=== PATIENT | female | born 1975 | race American Indian/Alaskan Native ===

== ENCOUNTER 2018-07-01 12:38 | Emergency (ER) | payer MEDICARE ==
[2018-07-01] MEDS ORDERED: DILAUDID IM ONE (13:07)
--- NOTE | 2018-07-01 13:08 | Emergency Department Report ---
ED General Adult HPI - General Chief complaint: Back Pain/Injury Stated complaint: HIP PAIN Time Seen by Provider: 07/01/18 12:59 Source: patient, RN notes reviewed, old records reviewed Mode of arrival: Stretcher Limitations: No Limitations - History of Present Illness Initial comments: This is a 43-year-old female. Patient reports a past medical history of hysterectomy, and psychiatric disease. Patient also has a pain specialist; Dr. Purcell Patient presents to the ER with a complaint of nontraumatic bilateral thigh pain which has been present for one day. The pain is sharp and burning, and it radiates to the proximal mid thigh. it otherwise does not have exacerbating or relieving factors. She denies headache, neck pain, chest pain, abdominal pain, shortness of breath. She reports anxiety, but denies irritative, obstructive urinary symptoms, and denies bladder or bowel retention, incontinence. As far as the patient knows, her pain otherwise does not have relieving factors. -: Gradual Location: left, right, lower extremity Radiation: extremity Quality: burning Consistency: other Improves with: other Worsens with: other Associated Symptoms: other (patient complains of anxiety). denies: confusion, chest pain, cough, diaphoresis, fever/chills, headaches, loss of appetite, malaise, nausea/vomiting, rash, seizure, shortness of breath, syncope, weakness - Related Data Home Medications Medication Instructions Recorded Confirmed Last Taken ALPRAZolam [Xanax TAB] 1 mg PO TID PRN 03/05/15 06/10/16 1 Day Ago ~03/04/15 Morphine [Morphine TAB] 60 mg PO BID 03/05/15 06/10/16 1 Day Ago ~03/04/15 Oxycodone HCl [Roxicodone] 30 mg PO TID 03/05/15 06/10/16 1 Day Ago ~03/04/15 buPROPion [Wellbutrin] 300 mg PO DAILY 03/05/15 06/10/16 Unknown amLODIPine [Norvasc] 10 mg PO DAILY 06/10/16 06/10/16 Unknown Previous Rx's Medication Instructions Recorded Last Taken Type Acetaminophen [Tylenol Arthritis] 650 mg PO Q6HR PRN #30 tablet.er 07/01/18 Unknown Rx Lidocaine [Lidoderm] 1 each TP QDAY #5 adh..patch 07/01/18 Unknown Rx Allergies Allergy/AdvReac Type Severity Reaction Status Date / Time NSAIDS (Non-Steroidal Allergy Swelling Verified 03/05/15 07:02 Anti-Inflamma ED Review of Systems ROS: Stated complaint: HIP PAIN Other details as noted in HPI Constitutional: denies: fever Eyes: denies: eye discharge ENT: denies: epistaxis Respiratory: denies: cough Cardiovascular: denies: chest pain Gastrointestinal: denies: abdominal pain Genitourinary: denies: dysuria Musculoskeletal: arthralgia, myalgia Psychiatric: anxiety ED Past Medical Hx - Past Medical History Previous Medical History?: Yes Hx Hypertension: Yes Hx Psychiatric Treatment: Yes (PTSD) Additional medical history: anxiety - Surgical History Past Surgical History?: Yes Additional Surgical History: URETER SURGERY WITH MESH. Hysterectomy - Social History Smoking Status: Never Smoker Substance Use Type: None - Medications Home Medications: Home Medications Medication Instructions Recorded Confirmed Last Taken Type ALPRAZolam [Xanax TAB] 1 mg PO TID PRN 03/05/15 06/10/16 1 Day Ago History ~03/04/15 Morphine [Morphine TAB] 60 mg PO BID 03/05/15 06/10/16 1 Day Ago History ~03/04/15 Oxycodone HCl [Roxicodone] 30 mg PO TID 03/05/15 06/10/16 1 Day Ago History ~03/04/15 buPROPion [Wellbutrin] 300 mg PO DAILY 03/05/15 06/10/16 Unknown History amLODIPine [Norvasc] 10 mg PO DAILY 06/10/16 06/10/16 Unknown History Acetaminophen [Tylenol Arthritis] 650 mg PO Q6HR PRN #30 tablet.er 07/01/18 Unknown Rx Lidocaine [Lidoderm] 1 each TP QDAY #5 adh..patch 07/01/18 Unknown Rx ED Physical Exam - General Limitations: No Limitations General appearance: alert, anxious, in distress - Head Head exam: Present: atraumatic, normocephalic - Eye Eye exam: Present: normal appearance, EOMI. Absent: nystagmus - ENT ENT exam: Present: normal exam, normal orophraynx, mucous membranes moist, normal external ear exam - Neck Neck exam: Present: normal inspection, full ROM. Absent: tenderness, meningismus - Respiratory Respiratory exam: Present: normal lung sounds bilaterally. Absent: respiratory distress - Cardiovascular Cardiovascular Exam: Present: normal rhythm, tachycardia, normal heart sounds. Absent: systolic murmur, diastolic murmur, rubs, gallop - GI/Abdominal GI/Abdominal exam: Present: soft, normal bowel sounds. Absent: distended, tenderness, guarding, rebound, rigid, pulsatile mass - Extremities Exam Extremities exam: Present: normal inspection (no redness, pus or streaking noted in the bilateral inguinal regions. Inguinal regions nontender. Chaperoned by nurse Sophia Rodgers), full ROM, normal capillary refill, other ( 2+ pulses noted in the bilateral upper, lower extremities. Compartments soft. No long bony tenderness. The pelvis is stable.). Absent: tenderness, pedal edema, joint swelling, calf tenderness - Back Exam Back exam: Present: normal inspection, full ROM. Absent: tenderness, CVA tenderness (R), paraspinal tenderness, vertebral tenderness - Neurological Exam Neurological exam: Present: alert, oriented X3, CN II-XII intact, normal gait, other (2+ pulses noted in the bilateral upper, lower extremities. Compartments soft. No long bony tenderness. The pelvis is stable.). Absent: motor sensory deficit - Psychiatric Psychiatric exam: Present: anxious - Skin Skin exam: Present: warm, dry, intact, normal color. Absent: rash ED Course Vital Signs 07/01/18 07/01/18 07/01/18 12:51 14:01 14:56 Temperature 98.2 F Pulse Rate 111 H 76 91 H Respiratory 18 18 18 Rate Blood Pressure 114/70 Blood Pressure 118/81 132/81 [Right] O2 Sat by Pulse 98 97 98 Oximetry ED Medical Decision Making - Lab Data Result diagrams: 07/01/18 14:11 07/01/18 14:11 Vital Signs 07/01/18 07/01/18 07/01/18 12:51 14:01 14:56 Temperature 98.2 F Pulse Rate 111 H 76 91 H Respiratory 18 18 18 Rate Blood Pressure 114/70 Blood Pressure 118/81 132/81 [Right] O2 Sat by Pulse 98 97 98 Oximetry Lab Results 07/01/18 07/01/18 07/01/18 Range/Units 14:11 14:11 14:11 WBC 6.5 (4.5-11.0) K/mm3 RBC 4.47 (3.65-5.03) M/mm3 Hgb 13.6 (10.1-14.3) gm/dl Hct 40.5 (30.3-42.9) % MCV 91 (79-97) fl MCH 31 (28-32) pg MCHC 34 (30-34) % RDW 13.1 L (13.2-15.2) % Plt Count 215 (140-440) K/mm3 Sodium 138 (137-145) mmol/L Potassium 4.4 (3.6-5.0) mmol/L Chloride 99.9 (98-107) mmol/L Carbon Dioxide 30 (22-30) mmol/L Anion Gap 13 mmol/L BUN 6 L (7-17) mg/dL Creatinine 0.6 L (0.7-1.2) mg/dL Estimated GFR > 60 ml/min BUN/Creatinine Ratio 10 % Glucose 116 H (65-100) mg/dL Calcium 9.6 (8.4-10.2) mg/dL Magnesium 2.00 (1.7-2.3) mg/dL Total Creatine Kinase 434 H (30-135) units/L Salicylates < 0.3 L (2.8-20.0) mg/dL Acetaminophen (10.0-30.0) ug/mL 07/01/18 Range/Units 14:11 WBC (4.5-11.0) K/mm3 RBC (3.65-5.03) M/mm3 Hgb (10.1-14.3) gm/dl Hct (30.3-42.9) % MCV (79-97) fl MCH (28-32) pg MCHC (30-34) % RDW (13.2-15.2) % Plt Count (140-440) K/mm3 Sodium (137-145) mmol/L Potassium (3.6-5.0) mmol/L Chloride (98-107) mmol/L Carbon Dioxide (22-30) mmol/L Anion Gap mmol/L BUN (7-17) mg/dL Creatinine (0.7-1.2) mg/dL Estimated GFR ml/min BUN/Creatinine Ratio % Glucose (65-100) mg/dL Calcium (8.4-10.2) mg/dL Magnesium (1.7-2.3) mg/dL Total Creatine Kinase (30-135) units/L Salicylates (2.8-20.0) mg/dL Acetaminophen < 5.0 L (10.0-30.0) ug/mL - Radiology Data Radiology results: report reviewed, image reviewed X-ray of the pelvis is negative for acute disease - Medical Decision Making Differential diagnosis, including but not limited to: Anxiety, neuropathic pain , musculoskeletal pain, fibromyalgia, myositis Assessment and plan: 43-year-old female with nonspecific proximal thigh pain, initially quite tachycardic, most likely secondary to underlying anxiety. Muscular compartment soft, with no redness, pus or streaking, laboratory studies essentially unremarkable, CK of 430 does not meet definition criteria of rhabdomyolysis, does not require IV fluids and it will decrease on its own with oral hydration. The patient's symptoms were markedly improved with intramuscular hydromorphone as she is allergic to NSAIDs, and on multiple repeat evaluations she is noted to be playing on the cellular phone and in no acute distress. She further reports that she has an outpatient pain specialist. There does not appear to be an emergent medical condition at this time, patient medically suitable for discharge with her outpatient primary care doctor, pain specialist. Critical care attestation.: If time is entered above; I have spent that time in minutes in the direct care of this critically ill patient, excluding procedure time. ED Disposition Clinical Impression: Leg pain Disposition: DC-01 TO HOME OR SELFCARE Is pt being admited?: No Does the pt Need Aspirin: No Condition: Stable Instructions: Arthralgia (ED) Additional Instructions: Continue current outpatient pain medications. Take the prescribed pain medications as directed. If taking acetaminophen, do not combine with other acetaminophen-containing compounds, such as Tylenol, Ultram, Percocet. Use Lidoderm patches as directed, rest, and avoid heavy lifting and avoid strenuous physical activities. Follow up with a primary care doctor or pain specialist within the next 10 days. Return to the ER right away with new pain, worsened pain, migration of pain, projectile vomiting, change in mental status, confusion, inability to tolerate liquid feeds. Referrals: OLESYA CHOWDARY MD [Staff Physician] - 3-5 Days
--- NOTE | 2018-07-01 14:08 | XRay Report ---
FINAL REPORT EXAM: XR PELVIS 1-2V HISTORY: hip pain TECHNIQUE: AP view of pelvis. PRIORS: None. FINDINGS: No apparent fracture or dislocation. Joint spaces maintained. Mild marginal spurring in the left superolateral acetabulum. Soft tissues grossly unremarkable. IMPRESSION: 1. No acute osseous abnormality.
[2018-07-01 14:28] LABS: Hematocrit 40.5 % (30.3-42.9); Hemoglobin 13.6 gm/dl (10.1-14.3); Mean Corpuscular HGB Conc 34 % (30-34); Mean Corpuscular Hemoglobin 31 pg (28-32); Mean Corpuscular Volume 91 fl (79-97); Platelet Count 215 K/mm3 (140-440); Red Blood Count 4.47 M/mm3 (3.65-5.03); Red Cell Distribution Width 13.1 % (13.2-15.2)
[2018-07-01 14:43] LABS: BUN/Creatinine Ratio 10; Blood Urea Nitrogen 6 mg/dL (7-17); Calcium 9.6 mg/dL (8.4-10.2); Hemolysis Index 1
[2018-07-01 14:57] VITALS: BP 132/81
== END 2018-07-01 16:05 | disposition home or self-care (01) ==
LOC: ED 12:38
DX: M79.652 Pain in left thigh (principal); M79.651 Pain in right thigh; F41.9 Anxiety disorder, unspecified; I10 Essential (primary) hypertension; F43.10 Post-traumatic stress disorder, unspecified; Z90.710 Acquired absence of both cervix and uterus; Z79.899 Other long term (current) drug therapy; Z88.8 Allergy status to other drugs, medicaments and biological substances
CPT/HCPCS: 36415; 72170; 80048; 82550; 83735; 85027; 96372; 99284; G0480; J1170; 80320

== ENCOUNTER 2019-08-13 01:35 | Emergency (ER) | payer MEDICARE ==
--- NOTE | 2019-08-13 02:17 | XRay Report ---
CHEST 1 VIEW INDICATION: Chest Pain. COMPARISON: 01/17/2009. FINDINGS: Support devices: None. Heart: Within normal limits. Lungs/Pleura: No acute air space or interstitial disease. Additional findings: None. IMPRESSION: No acute abnormality. Signer Name: Aydin Gray MD Signed: 08/13/2019 2:13 AM Workstation Name: [id number]
[2019-08-13] MEDS ORDERED: ONDANSETRON 4 MG/2 ML INJ IV ONE (02:24)
[2019-08-13] MEDS ORDERED: HYDROmorphone 1 MG/1 ML INJ IV ONE ×2 (02:24→03:41)
[2019-08-13 02:34] LABS: Basophils % (Auto) 0.4 % (0.0-1.8); Eosinophils # (Auto) 0.2 K/mm3 (0.0-0.4); Hematocrit 40.2 % (30.3-42.9); Hemoglobin 13.4 gm/dl (10.1-14.3); Lymphocytes # (Auto) 4.3 K/mm3 (1.2-5.4); Lymphocytes % (Auto) 55.1 % (13.4-35.0); Mean Corpuscular HGB Conc 33 % (30-34); Mean Corpuscular Volume 91 fl (79-97); Monocytes # (Auto) 0.6 K/mm3 (0.0-0.8); Monocytes % (Auto) 7.1 % (0.0-7.3); Platelet Count 245 K/mm3 (140-440); Red Blood Count 4.42 M/mm3 (3.65-5.03); Red Cell Distribution Width 13.2 % (13.2-15.2)
[2019-08-13 02:45] LABS: INR 0.96 (0.87-1.13)
[2019-08-13 03:01] LABS: BUN/Creatinine Ratio 13; Blood Urea Nitrogen 9 mg/dL (7-17); Hemolysis Index 3
--- NOTE | 2019-08-13 03:19 | Emergency Department Report ---
ED Chest Pain HPI - General Chief Complaint: Chest Pain Stated Complaint: CHEST PAIN Time Seen by Provider: 08/13/19 02:14 Source: EMS Mode of arrival: Stretcher Limitations: No Limitations - History of Present Illness Initial Comments: 44-year-old female with past medical history of hypertension, smoking, chronic pain currently a pain management presents to Hospital with complaints of sudden onset of left-sided chest pain that started prior to arrival. Patient states she was lying down and she started to develop left-sided constant chest pain described as someone punching her in her chest. Positive shortness of breath. Pain is worse with lying supine and abduction of her left arm. It is improved by holding her left pectorals muscle. She denies nausea, vomiting, or diaphoresis. She denies calf tenderness, leg edema, history of PE/DVT, recent travel, hormone use, or recent surgery. She currently takes morphine 30 mg twice a day oxycodone 50 mg once a day for chronic pain related to previous surgery uterer surgery with mesh complications. Severity scale (0 -10): 10 - Related Data Home Medications Medication Instructions Recorded Confirmed Last Taken ALPRAZolam [Xanax TAB] 1 mg PO TID PRN 03/05/15 06/10/16 1 Day Ago ~03/04/15 Morphine [Morphine TAB] 60 mg PO BID 03/05/15 06/10/16 1 Day Ago ~03/04/15 Oxycodone HCl [Roxicodone] 30 mg PO TID 03/05/15 06/10/16 1 Day Ago ~03/04/15 buPROPion [Wellbutrin] 300 mg PO DAILY 03/05/15 06/10/16 Unknown amLODIPine [Norvasc] 10 mg PO DAILY 06/10/16 06/10/16 Unknown Previous Rx's Medication Instructions Recorded Last Taken Type Acetaminophen [Tylenol Arthritis] 650 mg PO Q6HR PRN #30 tablet.er 07/01/18 Unknown Rx Lidocaine [Lidoderm] 1 each TP QDAY #5 adh..patch 07/01/18 Unknown Rx Allergies Allergy/AdvReac Type Severity Reaction Status Date / Time NSAIDS (Non-Steroidal Allergy Swelling Verified 03/05/15 07:02 Anti-Inflamma Heart Score - HEART Score History: Slightly suspicious EKG: Normal Age: < 45 Risk factors: 1-2 risk factors Troponin: < normal limit HEART Score: 1 ED Review of Systems ROS: Stated complaint: CHEST PAIN Other details as noted in HPI Comment: All other systems reviewed and negative ED Past Medical Hx - Past Medical History Hx Hypertension: Yes Hx Psychiatric Treatment: Yes (PTSD) Additional medical history: anxiety - Surgical History Additional Surgical History: URETER SURGERY WITH MESH. Hysterectomy - Social History Smoking Status: Current Every Day Smoker Substance Use Type: Alcohol - Medications Home Medications: Home Medications Medication Instructions Recorded Confirmed Last Taken Type ALPRAZolam [Xanax TAB] 1 mg PO TID PRN 03/05/15 06/10/16 1 Day Ago History ~03/04/15 Morphine [Morphine TAB] 60 mg PO BID 03/05/15 06/10/16 1 Day Ago History ~03/04/15 Oxycodone HCl [Roxicodone] 30 mg PO TID 03/05/15 06/10/16 1 Day Ago History ~03/04/15 buPROPion [Wellbutrin] 300 mg PO DAILY 03/05/15 06/10/16 Unknown History amLODIPine [Norvasc] 10 mg PO DAILY 06/10/16 06/10/16 Unknown History Acetaminophen [Tylenol Arthritis] 650 mg PO Q6HR PRN #30 tablet.er 07/01/18 Unknown Rx Lidocaine [Lidoderm] 1 each TP QDAY #5 adh..patch 07/01/18 Unknown Rx ED Physical Exam - General Limitations: No Limitations - Other Other exam information: General: distress secondary to pain, holding the left side of chest, feels better sitting straight up. Head: Atraumatic Eyes: normal appearance ENT: Moist mucous membranes Neck: Normal appearance, no midline tenderness Chest: Clear to auscultation bilaterally,left-sided chest wall tenderness and pectoralis muscle. Pain to left chest with abduction of shoulder greater than 90 CV: Regular rate and rhythm Abdomen: Soft, normal bowel sounds, nontender, nondistended, no rebound or guarding Back: Normal inspection Extremity: Normal inspection infection, full range of motion, no calf tenderness or leg edema. Neuro: Alert O x 3, no facial asymmetry, speech clear, no gross motor sensory deficit Psych: Appropriate behavior Skin: No rash ED Course Vital Signs 08/13/19 08/13/19 08/13/19 01:38 01:48 02:00 Temperature 98.5 F Pulse Rate 75 85 Respiratory 16 12 Rate Blood Pressure 141/85 141/85 141/85 O2 Sat by Pulse 100 99 Oximetry 08/13/19 08/13/19 02:15 02:30 Temperature Pulse Rate 75 74 Respiratory 10 L 13 Rate Blood Pressure 121/77 124/67 O2 Sat by Pulse 97 99 Oximetry TYE score - Tye Score Age > 65: (0) No Aspirin use within the Past 7 Days: (0) No 3 or more CAD Risk Factors: (0) No 2 or more Angina events in past 24 hrs: (0) No Known CAD with more than 50% Stenosis: (0) No Elevated Cardiac Markers: (0) No ST Deviation Greater than 0.5mm: (0) No TYE Score: 0 ED Medical Decision Making - Lab Data Result diagrams: 08/13/19 02:01 08/13/19 02:01 Lab Results 08/13/19 08/13/19 08/13/19 Range/Units 02:01 02:01 02:25 WBC 7.9 (4.5-11.0) K/mm3 RBC 4.42 (3.65-5.03) M/mm3 Hgb 13.4 (10.1-14.3) gm/dl Hct 40.2 (30.3-42.9) % MCV 91 (79-97) fl MCH 30 (28-32) pg MCHC 33 (30-34) % RDW 13.2 (13.2-15.2) % Plt Count 245 (140-440) K/mm3 Lymph % (Auto) 55.1 H (13.4-35.0) % [place] % (Auto) 7.1 (0.0-7.3) % Eos % (Auto) 2.0 (0.0-4.3) % Baso % (Auto) 0.4 (0.0-1.8) % Lymph # 4.3 (1.2-5.4) K/mm3 [place] # 0.6 (0.0-0.8) K/mm3 Eos # 0.2 (0.0-0.4) K/mm3 Baso # 0.0 (0.0-0.1) K/mm3 Seg Neutrophils % 35.4 L (40.0-70.0) % Seg Neutrophils # 2.8 (1.8-7.7) K/mm3 PT 12.7 (12.2-14.9) Sec. INR 0.96 (0.87-1.13) D-Dimer 135.00 (0-234) ng/mlDDU Sodium 138 (137-145) mmol/L Potassium 4.0 (3.6-5.0) mmol/L Chloride 102.6 (98-107) mmol/L Carbon Dioxide 23 (22-30) mmol/L Anion Gap 16 mmol/L BUN 9 (7-17) mg/dL Creatinine 0.7 (0.7-1.2) mg/dL Estimated GFR > 60 ml/min BUN/Creatinine Ratio 13 % Glucose 115 H (65-100) mg/dL Calcium 9.0 (8.4-10.2) mg/dL Troponin T < 0.010 (0.00-0.029) ng/mL - EKG Data -: EKG Interpreted by Me EKG shows normal: sinus rhythm, ST-T waves (no stemi) Rate: normal (91) - Radiology Data Radiology results: report reviewed CHEST 1 VIEW INDICATION: Chest Pain. COMPARISON: 01/17/2009. FINDINGS: Support devices: None. Heart: Within normal limits. Lungs/Pleura: No acute air space or interstitial disease. Additional findings: None. IMPRESSION: No acute abnormality. - Medical Decision Making Patient clinically appears to have muscular skeletal chest pain is reproducible with movement of her left shoulder and feels better when she holds her pectoralis muscle. This is a low heart score, and negative Perc pe score, low wells pe score with neg ddimer. cxr and EKG unremarkable. Patient treated with 2 separate doses of Dilaudid IV with some improvement. Patient has a high pain tolerance given chronic narcotic use. I informed patient that I wanted to repeat troponin EKG as scheduled prior to discharge given there can be a delay in trop elevation after acute mi. Patient declines and prefers to go home. I have a low suspicion for cardiac disease - Differential Diagnosis SC, PE, possible angina, MSK pain, pneumothorax, pericarditis Critical Care Time: No Critical care attestation.: If time is entered above; I have spent that time in minutes in the direct care of this critically ill patient, excluding procedure time. ED Disposition Clinical Impression: Chest wall pain Disposition: DC- TO HOME OR SELFCARE Is pt being admited?: No Does the pt Need Aspirin: No Condition: Stable Instructions: Thoracic Pain (ED), Chest Pain (ED) Additional Instructions: You have declined additional observation for repeat cardiac enzymes and ekg to further rule out heart attack prior to your discharge. Continue your current medication as prescribed. Follow-up with your doctor or doctor/clinic provide d. Return if symptoms worsen as indicated by your discharge instructions. Referrals: your, doctor [Other] - 3-5 Days NIRAV JOSÉ MD [Staff Physician] - 3-5 Days (human resources office manager ) ZURDO HOLLIS MD [Staff Physician] - 3-5 Days (primary care doctor ) Time of Disposition: 04:07
[2019-08-13 04:10] VITALS: BP 111/66
== END 2019-08-13 04:27 | disposition home or self-care (01) ==
LOC: ED 01:35
DX: R07.89 Other chest pain (principal); I10 Essential (primary) hypertension; F43.10 Post-traumatic stress disorder, unspecified; F41.9 Anxiety disorder, unspecified; F17.200 Nicotine dependence, unspecified, uncomplicated; F10.10 Alcohol abuse, uncomplicated; Z79.899 Other long term (current) drug therapy; Z98.890 Other specified postprocedural states; Z90.710 Acquired absence of both cervix and uterus; Z88.8 Allergy status to other drugs, medicaments and biological substances
CPT/HCPCS: 36415; 71045; 80048; 84484; 85025; 85379; 85610; 93005; 93010; 96374; 96375; 96376; 99284; J1170; J2405

== ENCOUNTER 2021-03-07 20:50 | Emergency (ER) | payer MEDICARE, OTHER ==
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
[2021-03-08 00:04] VITALS: BP 148/64
== END 2021-03-08 00:05 | disposition home or self-care (01) ==
LOC: ED 20:50
DX: S29.012A Strain of muscle and tendon of back wall of thorax, initial encounter (principal); S16.1XXA Strain of muscle, fascia and tendon at neck level, initial encounter; I10 Essential (primary) hypertension; F41.9 Anxiety disorder, unspecified; Z90.710 Acquired absence of both cervix and uterus; Z98.890 Other specified postprocedural states; Z88.8 Allergy status to other drugs, medicaments and biological substances; Z79.899 Other long term (current) drug therapy; V49.49XA Driver injured in collision with other motor vehicles in traffic accident, initial encounter; Y92.410 Unspecified street and highway as the place of occurrence of the external cause; Y93.89 Activity, other specified; Y99.8 Other external cause status
CPT/HCPCS: 99282